=== PATIENT | male | born 1960 ===

== ENCOUNTER 2021-06-16 10:53 | Observation (INO) ==
[2021-06-16] MEDS ORDERED: Famotidine IV 10 MG/ML 2 ml VIAL (20 mg) IV SLOW PU ONE (11:05)
[2021-06-16] MEDS ORDERED: Morphine 4 MG/ML VIAL (1 ml) IV ONE ×2 (11:05→14:27)
[2021-06-16] MEDS ORDERED: Pantoprazole VIAL 40 MG VIAL IV ONE (11:08)
[2021-06-16 14:30] LABS: ABS Lymphocytes 1.2 10^3/ul (1.0-4.8); ABS Monocytes 0.9 10^3/ul (0-0.8); ABS Neutrophils 6.4 10^3/ul (1.5-7.7); Eosinophil % 0.5 %; Hematocrit 46 % (42-52); Hemoglobin 15.3 g/dL (14.0-18.0); Lymphocyte % 14.4 %; Mean Corpuscular HGB Conc 33 g/dL (31-36); Mean Corpuscular Hemoglobin 28 pg (27-31); Mean Corpuscular Volume 84 fL (80-94); Mean Platelet Volume 8.2 fL (7.4-10.4); Platelet Count 209 10^3/uL (150-450); Red Blood Count 5.53 10^6 /uL (4.18-5.48); Red Cell Distribution Width 15 % (10-15); White Blood Count 8.5 10^3/uL (3.5-10.8)
[2021-06-16 14:51] LABS: Albumin 4.7 g/dL (3.2-5.2); Albumin/Globulin Ratio 1.5 (1-3); Calcium 9.4 mg/dL (8.6-10.3); EGFR African American 77.2 (>60); EGFR Non-African American 63.8 (>60); Globulin 3.2 g/dL (2-4); Potassium 3.9 mmol/L (3.5-5.0); Total Bilirubin 0.8 mg/dL (0.2-1.0); Total Protein 7.9 g/dL (6.4-8.9)
[2021-06-16] MEDS ORDERED: PEG 3000 GI LAVAGE 1 GALLON PO ONE (16:16)
[2021-06-16] MEDS ORDERED: Dextrose 50% Syringe 50 ml 25 GM/50 ML SYRINGE IV PUSH PRN (16:33)
[2021-06-16] MEDS ORDERED: Isosorbide Mononit ER 30mg TAB PO ONE (16:34)
[2021-06-16] MEDS: Morphine 2 MG/ML SYRINGE IV SCH ×2 (18:20→22:06)
[2021-06-16] MEDS: Pantoprazole 80 mg in NS BAG 80 MG/250 ML BAG IV SCH (18:21)
[2021-06-17] MEDS: Morphine 2 MG/ML SYRINGE IV SCH ×3 (02:55→13:08)
[2021-06-17 06:03] LABS: ABS Eosinophils 0.1 10^3/ul (0-0.6); ABS Lymphocytes 1.6 10^3/ul (1.0-4.8); ABS Monocytes 1.2 10^3/ul (0-0.8); ABS Neutrophils 4.6 10^3/ul (1.5-7.7); Eosinophil % 0.9 %; Hematocrit 42 % (42-52); Lymphocyte % 20.9 %; Mean Corpuscular HGB Conc 33 g/dL (31-36); Mean Corpuscular Hemoglobin 28 pg (27-31); Mean Corpuscular Volume 84 fL (80-94); Mean Platelet Volume 8.3 fL (7.4-10.4); Platelet Count 191 10^3/uL (150-450); Red Cell Distribution Width 15 % (10-15); White Blood Count 7.5 10^3/uL (3.5-10.8)
[2021-06-17 06:24] LABS: Calcium 8.8 mg/dL (8.6-10.3); EGFR Non-African American 61.9 (>60); Potassium 4.1 mmol/L (3.5-5.0)
[2021-06-17] MEDS: Pantoprazole 80 mg in NS BAG 80 MG/250 ML BAG IV SCH (06:59)
[2021-06-17] MEDS ORDERED: Pneumococcal Vac 23-Polyvalent IM ONE (09:00)
[2021-06-17] MEDS ORDERED: Flu vaccine *QUAD* 2021-22* 0.5 ML SYRINGE IM ONE (09:00)
[2021-06-17] MEDS: Isosorbide Mononit ER 30mg TAB PO SCH (09:22)
[2021-06-17] MEDS ORDERED: Midazolam 2 mg/2 ml VIAL 1 mg/ml 2 ml VIAL (2 mg) ONE ×2 (10:16→11:42)
[2021-06-17] MEDS ORDERED: Lidocaine 2% PF 5 ML VIAL INH ONE (11:01)
[2021-06-17] MEDS ORDERED: Dexmedetomidine 200 mcg/2 ml 2 ml VIAL (200 mcg) ONE (11:19)
[2021-06-17] MEDS ORDERED: Lidocaine 2% PF 5 ML VIAL ONE (11:24)
[2021-06-17] MEDS ORDERED: Acetaminophen IV 1 GM/100ML 100 ML IV ONE (11:30)
[2021-06-17] MEDS ORDERED: Ondansetron 4 mg VIAL 2 MG/ML 2 ml VIAL IV PRN (11:56)
[2021-06-17] MEDS ORDERED: Naloxone 0.4 mg VIAL 0.4 mg/ml 1 ml VIAL IV PRN (11:56)
[2021-06-17] MEDS: Morphine 2 MG/ML SYRINGE IV PRN ×2 (14:11→20:36)
[2021-06-17] MEDS ORDERED: Polyethylene Glycol 3350 17 GM PACKET PO PRN (14:51)
[2021-06-17] MEDS: Sucralfate 1 gm SUSP 1 GM/10 ML UDC PO SCH (23:20)
[2021-06-18] MEDS: Morphine 2 MG/ML SYRINGE IV PRN ×3 (02:29→14:09)
[2021-06-18 06:36] LABS: ABS Eosinophils 0.1 10^3/ul (0-0.6); ABS Lymphocytes 1.6 10^3/ul (1.0-4.8); ABS Monocytes 1.3 10^3/ul (0-0.8); ABS Neutrophils 6.1 10^3/ul (1.5-7.7); Eosinophil % 1.6 %; Hematocrit 43 % (42-52); Hemoglobin 14.1 g/dL (14.0-18.0); Lymphocyte % 17.7 %; Mean Corpuscular HGB Conc 33 g/dL (31-36); Mean Corpuscular Hemoglobin 28 pg (27-31); Mean Corpuscular Volume 85 fL (80-94); Mean Platelet Volume 8.2 fL (7.4-10.4); Platelet Count 209 10^3/uL (150-450); Red Blood Count 5.05 10^6 /uL (4.18-5.48); Red Cell Distribution Width 15 % (10-15); White Blood Count 9.2 10^3/uL (3.5-10.8)
[2021-06-18 07:07] LABS: Calcium 8.8 mg/dL (8.6-10.3); EGFR African American 67.1 (>60); EGFR Non-African American 55.4 (>60); Potassium 3.9 mmol/L (3.5-5.0)
[2021-06-18] MEDS: Sucralfate 1 gm SUSP 1 GM/10 ML UDC PO SCH (07:37)
[2021-06-18] MEDS: Isosorbide Mononit ER 30mg TAB PO SCH (08:51)
[2021-06-18 11:44] VITALS: BP 148/89
== END 2021-06-18 14:17 ==
LOC: ED 10:53 → SSU 10:53
PROVIDERS: ADMIT Internal Medicine; ATTEND Internal Medicine

== ENCOUNTER 2021-06-25 12:56 | Inpatient (IN) ==
[2021-06-25] MEDS ORDERED: Pantoprazole VIAL 40 MG VIAL IV ONE (13:28)
[2021-06-25 17:03] LABS: ABS Basophils 0.1 10^3/ul (0-0.2); ABS Eosinophils 0.1 10^3/ul (0-0.6); ABS Lymphocytes 1.6 10^3/ul (1.0-4.8); ABS Monocytes 0.8 10^3/ul (0-0.8); ABS Neutrophils 4.9 10^3/ul (1.5-7.7); Hematocrit 50 % (42-52); Hemoglobin 16.3 g/dL (14.0-18.0); Lymphocyte % 20.9 %; Mean Corpuscular HGB Conc 33 g/dL (31-36); Mean Corpuscular Hemoglobin 28 pg (27-31); Mean Corpuscular Volume 87 fL (80-94); Mean Platelet Volume 8.6 fL (7.4-10.4); Platelet Count 121 10^3/uL (150-450); Red Blood Count 5.76 10^6 /uL (4.18-5.48); Red Cell Distribution Width 16 % (10-15); White Blood Count 7.5 10^3/uL (3.5-10.8)
[2021-06-25 17:23] LABS: ALT 35 U/L (7-52); AST 18 U/L (13-39); Albumin 4.8 g/dL (3.2-5.2); Albumin/Globulin Ratio 1.5 (1-3); Alkaline Phosphatase 54 U/L (35-149); Anion Gap 10 mmol/L (2-11); Blood Urea Nitrogen 25 mg/dL (6-24); CO2 Carbon Dioxide 23 mmol/L (22-32); Calcium 9.8 mg/dL (8.6-10.3); Chloride 105 mmol/L (101-111); EGFR African American 64.8 (>60); EGFR Non-African American 53.6 (>60); Globulin 3.1 g/dL (2-4); Glucose 128 mg/dL (70-100); Lipase 18 U/L (11.0-82.0); Potassium 4.4 mmol/L (3.5-5.0); Sodium 138 mmol/L (135-145); Total Protein 7.9 g/dL (6.4-8.9)
[2021-06-25] MEDS ORDERED: Al Hydrox/Mg Hydrox/Simet LIQ 30 ML UDC PO ONE (18:46)
[2021-06-25] MEDS ORDERED: Morphine 4 MG/ML VIAL (1 ml) IV ONE ×2 (18:46→21:37)
[2021-06-25] MEDS ORDERED: Iodixanol (CONTRAST) 320 MG/ML 100 ML SDV IV ONE (19:35)
[2021-06-25 20:48] LABS: Troponin I 0.06 ng/mL (<0.03)
[2021-06-25] MEDS ORDERED: Lactated Ringers 1000 ml BAG 1,000 ML IV ONE (20:54)
[2021-06-25 23:45] LABS: Rapid COVID-19 Molecular Undetected (Undetected)
[2021-06-25] MEDS ORDERED: Lactated Ringers 1000 ml BAG 1,000 ML IV SCH (23:45)
[2021-06-26] MEDS ORDERED: Dextrose 50% Syringe 50 ml 25 GM/50 ML SYRINGE IV PUSH PRN (00:33)
[2021-06-26 00:36] LABS: Urine Appearance Clear; Urine Bilirubin Negative (Negative); Urine Blood Negative (Negative); Urine Color Amber; Urine Glucose Negative (Negative); Urine Ketones Negative (Negative); Urine Nitrite Negative (Negative); Urine Protein Negative (Negative); Urine Specific Gravity 1.053 (1.002-1.030); Urine Urobilinogen Negative (Negative)
[2021-06-26 00:53] LABS: Troponin I 0.05 ng/mL (<0.03)
[2021-06-26 01:11] LABS: Cholesterol 132 mg/dL; Triglycerides 88 mg/dL
[2021-06-26 02:25] LABS: HDL Cholesterol 27.5 mg/dL; LDL Cholesterol 87 mg/dL
[2021-06-26] MEDS ORDERED: oxyCODONE/Acetamin 5/325 mg TAB PO ONE (04:28)
[2021-06-26] MEDS ORDERED: Al Hydrox/Mg Hydrox/Simet LIQ 30 ML UDC PO ONE (04:29)
[2021-06-26 05:13] LABS: ABS Basophils 0.1 10^3/ul (0-0.2); ABS Eosinophils 0.2 10^3/ul (0-0.6); ABS Lymphocytes 1.7 10^3/ul (1.0-4.8); ABS Monocytes 1.1 10^3/ul (0-0.8); ABS Neutrophils 5.3 10^3/ul (1.5-7.7); Eosinophil % 2.8 %; Hematocrit 45 % (42-52); Hemoglobin 14.6 g/dL (14.0-18.0); Lymphocyte % 20.6 %; Mean Corpuscular HGB Conc 33 g/dL (31-36); Mean Corpuscular Hemoglobin 28 pg (27-31); Mean Corpuscular Volume 87 fL (80-94); Mean Platelet Volume 8.6 fL (7.4-10.4); Platelet Count 237 10^3/uL (150-450); Red Blood Count 5.17 10^6 /uL (4.18-5.48); Red Cell Distribution Width 16 % (10-15); White Blood Count 8.5 10^3/uL (3.5-10.8)
[2021-06-26 05:39] LABS: Albumin 4.2 g/dL (3.2-5.2); Albumin/Globulin Ratio 1.4 (1-3); Calcium 9.2 mg/dL (8.6-10.3); EGFR African American 57.4 (>60); EGFR Non-African American 47.4 (>60); Potassium 3.5 mmol/L (3.5-5.0); Total Bilirubin 0.5 mg/dL (0.2-1.0); Total Protein 7.2 g/dL (6.4-8.9)
[2021-06-26] MEDS: Isosorbide Mononit ER 30mg TAB PO SCH (09:16)
[2021-06-26] MEDS: Aspirin EC 81 mg TAB.EC (enteric coated) PO SCH (09:16)
[2021-06-26] MEDS: Sucralfate 1 gm SUSP 1 GM/10 ML UDC PO SCH ×3 (11:40→20:47)
[2021-06-26] MEDS ORDERED: Perflutren Lipid Microsphere 3 ML VIAL ONE (14:10)
[2021-06-26] MEDS: Albuterol HFA INHALER 8 gm MDI INH SCH ×2 (15:13→20:46)
[2021-06-26 16:39] LABS: Calcium 8.7 mg/dL (8.6-10.3); EGFR African American 53.3 (>60); Potassium 4.1 mmol/L (3.5-5.0)
[2021-06-26] MEDS ORDERED: Enoxaparin 30 MG/0.3 ML SYR SUBCUT SCH (17:00)
[2021-06-26] MEDS: Pantoprazole VIAL 40 MG VIAL IV SCH (17:28)
[2021-06-26 18:17] LABS: Hematocrit 45 % (42-52); Hemoglobin 14.4 g/dL (14.0-18.0); Mean Corpuscular HGB Conc 32 g/dL (31-36); Mean Corpuscular Hemoglobin 28 pg (27-31); Mean Corpuscular Volume 87 fL (80-94); Red Blood Count 5.14 10^6 /uL (4.18-5.48); Red Cell Distribution Width 16 % (10-15); White Blood Count 7.5 10^3/uL (3.5-10.8)
[2021-06-26 18:30] LABS: EGFR African American 49.3 (>60); EGFR Non-African American 40.8 (>60)
[2021-06-26 18:34] LABS: ABS Basophils 0.1 10^3/ul (0-0.2); ABS Eosinophils 0.3 10^3/ul (0-0.6); ABS Lymphocytes 1.5 10^3/ul (1.0-4.8); ABS Monocytes 0.7 10^3/ul (0-0.8); Eosinophil % 3.6 %; Lymphocyte % 19.5 %; Mean Platelet Volume 8.7 fL (7.4-10.4); Platelet Count 228 10^3/uL (150-450)
[2021-06-26] MEDS: Heparin 5000 UNITS/ML 1 mL VIAL IV SCH (18:44)
[2021-06-26] MEDS: Heparin DRIP 25,000 UNITS BAG 25,000 UNITS/500 ML BAG IV SCH (18:44)
[2021-06-27 01:04] LABS: Hematocrit 40 % (42-52)
[2021-06-27] MEDS: Albuterol HFA INHALER 8 gm MDI INH SCH ×3 (02:28→19:58)
[2021-06-27] MEDS ORDERED: Albuterol HFA INHALER 8 gm MDI INH PRN (07:28)
[2021-06-27] MEDS: Pantoprazole VIAL 40 MG VIAL IV SCH ×2 (08:17→20:30)
[2021-06-27] MEDS: Aspirin EC 81 mg TAB.EC (enteric coated) PO SCH (08:18)
[2021-06-27] MEDS: Isosorbide Mononit ER 30mg TAB PO SCH (08:18)
[2021-06-27] MEDS: Sucralfate 1 gm SUSP 1 GM/10 ML UDC PO SCH ×4 (08:18→22:27)
[2021-06-27 08:46] LABS: ABS Basophils 0.1 10^3/ul (0-0.2); ABS Eosinophils 0.3 10^3/ul (0-0.6); ABS Lymphocytes 2.1 10^3/ul (1.0-4.8); ABS Monocytes 0.8 10^3/ul (0-0.8); ABS Neutrophils 3.9 10^3/ul (1.5-7.7); Eosinophil % 3.9 %; Hematocrit 40 % (42-52); Hemoglobin 13.1 g/dL (14.0-18.0); Mean Corpuscular HGB Conc 33 g/dL (31-36); Mean Corpuscular Hemoglobin 28 pg (27-31); Mean Corpuscular Volume 86 fL (80-94); Mean Platelet Volume 8.8 fL (7.4-10.4); Nucleated Red Blood Cells % 0.1; Platelet Count 224 10^3/uL (150-450); Red Blood Count 4.61 10^6 /uL (4.18-5.48); Red Cell Distribution Width 16 % (10-15); White Blood Count 7.1 10^3/uL (3.5-10.8)
[2021-06-27 09:01] LABS: Calcium 8.7 mg/dL (8.6-10.3); EGFR African American 67.1 (>60); EGFR Non-African American 55.4 (>60); Potassium 3.5 mmol/L (3.5-5.0)
[2021-06-27] MEDS ORDERED: Albuterol/Ipratropium NEB.SOL (2.5/0.5 MG) 3 ML NEB.SOLN INH SCH (13:00)
[2021-06-27] MEDS: Heparin DRIP 25,000 UNITS BAG 25,000 UNITS/500 ML BAG IV SCH (13:38)
[2021-06-27] MEDS ORDERED: Albuterol/Ipratropium NEB.SOL (2.5/0.5 MG) 3 ML NEB.SOLN INH PRN (14:17)
[2021-06-27 14:24] LABS: C Reactive Protein 1.18 mg/L (<8.01)
[2021-06-27] MEDS: Heparin 5000 UNITS/ML 1 mL VIAL IV SCH (19:43)
[2021-06-27] MEDS: Cholestyramine Resin 4 GM POWDER PO SCH (20:30)
[2021-06-28] MEDS: Albuterol HFA INHALER 8 gm MDI INH SCH ×4 (02:06→20:38)
[2021-06-28 09:14] LABS: ABS Basophils 0.1 10^3/ul (0-0.2); ABS Eosinophils 0.2 10^3/ul (0-0.6); ABS Lymphocytes 2.2 10^3/ul (1.0-4.8); ABS Monocytes 0.6 10^3/ul (0-0.8); ABS Neutrophils 3.8 10^3/ul (1.5-7.7); Eosinophil % 3.1 %; Hematocrit 40 % (42-52); Lymphocyte % 31.8 %; Mean Corpuscular HGB Conc 32 g/dL (31-36); Mean Corpuscular Hemoglobin 28 pg (27-31); Mean Corpuscular Volume 86 fL (80-94); Mean Platelet Volume 8.4 fL (7.4-10.4); Platelet Count 236 10^3/uL (150-450); Red Blood Count 4.65 10^6 /uL (4.18-5.48); Red Cell Distribution Width 16 % (10-15); White Blood Count 6.9 10^3/uL (3.5-10.8)
[2021-06-28 09:32] LABS: Albumin 3.8 g/dL (3.2-5.2); Albumin/Globulin Ratio 1.4 (1-3); Calcium 8.3 mg/dL (8.6-10.3); EGFR Non-African American 61.9 (>60); Globulin 2.7 g/dL (2-4); Magnesium 1.8 mg/dL (1.9-2.7); Phosphorus 2.3 mg/dL (2.5-5.0); Potassium 3.5 mmol/L (3.5-5.0); Total Bilirubin 0.2 mg/dL (0.2-1.0); Total Protein 6.5 g/dL (6.4-8.9)
[2021-06-28] MEDS: Cholestyramine Resin 4 GM POWDER PO SCH ×2 (09:41→20:43)
[2021-06-28] MEDS: Pantoprazole VIAL 40 MG VIAL IV SCH ×2 (09:41→20:43)
[2021-06-28] MEDS: Sucralfate 1 gm SUSP 1 GM/10 ML UDC PO SCH ×4 (09:41→20:42)
[2021-06-28] MEDS: Isosorbide Mononit ER 30mg TAB PO SCH (09:42)
[2021-06-28] MEDS: Aspirin EC 81 mg TAB.EC (enteric coated) PO SCH (09:42)
[2021-06-28] MEDS: Heparin DRIP 25,000 UNITS BAG 25,000 UNITS/500 ML BAG IV SCH (10:51)
[2021-06-28] MEDS: Heparin 5000 UNITS/ML 1 mL VIAL IV SCH (10:56)
[2021-06-28 23:22] LABS: Adenovirus F40/41 Negative (Negative); Astrovirus Negative (Negative); Cryptosporidium species Negative (Negative); Cyclospora cayetanensis Negative (Negative); Entamoeba histolytica Negative (Negative); Enteroaggregative E.coli(EAEC) Negative (Negative); Enteropathogenic Ecoli(EPEC) Negative (Negative); Enterotoxigenic Ecoli(ETEC) Negative (Negative); Norovirus GI/GII Negative (Negative); Plesiomonas shigelloides Negative (Negative); Salmonella species Negative (Negative); Sapovirus Negative (Negative); Shiga toxin producing E. coli Negative (Negative); Shigella/Enteroinvasive E.coli Negative (Negative); Specimen Source STOOL; Vibrio cholerae Negative (Negative); Yersinia species Negative (Negative)
[2021-06-29] MEDS: Heparin 5000 UNITS/ML 1 mL VIAL IV SCH (01:19)
[2021-06-29] MEDS: Albuterol HFA INHALER 8 gm MDI INH SCH ×5 (03:28→21:12)
[2021-06-29 07:34] LABS: ABS Basophils 0.1 10^3/ul (0-0.2); ABS Eosinophils 0.2 10^3/ul (0-0.6); ABS Lymphocytes 2.6 10^3/ul (1.0-4.8); ABS Monocytes 0.7 10^3/ul (0-0.8); ABS Neutrophils 3.5 10^3/ul (1.5-7.7); Eosinophil % 3.5 %; Hematocrit 39 % (42-52); Mean Corpuscular HGB Conc 33 g/dL (31-36); Mean Corpuscular Hemoglobin 29 pg (27-31); Mean Corpuscular Volume 86 fL (80-94); Mean Platelet Volume 8.4 fL (7.4-10.4); Platelet Count 231 10^3/uL (150-450); Red Blood Count 4.52 10^6 /uL (4.18-5.48); Red Cell Distribution Width 16 % (10-15); White Blood Count 7.1 10^3/uL (3.5-10.8)
[2021-06-29] MEDS: Heparin DRIP 25,000 UNITS BAG 25,000 UNITS/500 ML BAG IV SCH (07:34)
[2021-06-29 07:41] LABS: Calcium 8.6 mg/dL (8.6-10.3); EGFR African American 72.8 (>60); EGFR Non-African American 60.2 (>60); Magnesium 1.6 mg/dL (1.9-2.7); Potassium 3.5 mmol/L (3.5-5.0)
[2021-06-29] MEDS ORDERED: Warfarin per PHARMACY **NOTE FOLLOW UP SCH (08:00)
[2021-06-29] MEDS: Sucralfate 1 gm SUSP 1 GM/10 ML UDC PO SCH ×4 (08:02→21:36)
[2021-06-29] MEDS: Aspirin EC 81 mg TAB.EC (enteric coated) PO SCH (09:06)
[2021-06-29] MEDS: Isosorbide Mononit ER 30mg TAB PO SCH (09:06)
[2021-06-29] MEDS: Enoxaparin 100 MG/ML SYR SUBCUT SCH ×2 (09:08→21:36)
[2021-06-29] MEDS: Cholestyramine Resin 4 GM POWDER PO SCH ×2 (09:08→21:36)
[2021-06-29] MEDS: Pantoprazole VIAL 40 MG VIAL IV SCH (09:09)
[2021-06-29 13:16] LABS: Hematocrit 39 % (42-52); Hemoglobin 12.8 g/dL (14.0-18.0); Mean Platelet Volume 7.9 fL (7.4-10.4); Platelet Count 247 10^3/uL (150-450)
[2021-06-29 13:23] LABS: INR 1.12 (0.86-1.15)
[2021-06-29] MEDS: Warfarin DAILY REMINDER **NOTE FOLLOW UP SCH (17:24)
[2021-06-30] MEDS ORDERED: Albuterol HFA INHALER 8 gm MDI INH PRN (00:09)
[2021-06-30] MEDS: Sucralfate 1 gm SUSP 1 GM/10 ML UDC PO SCH ×3 (08:36→17:05)
[2021-06-30] MEDS: Enoxaparin 100 MG/ML SYR SUBCUT SCH (08:36)
[2021-06-30] MEDS: Aspirin EC 81 mg TAB.EC (enteric coated) PO SCH (08:41)
[2021-06-30] MEDS: Isosorbide Mononit ER 30mg TAB PO SCH (08:42)
[2021-06-30] MEDS ORDERED: Cholestyramine Resin 4 GM POWDER PO SCH (09:00)
[2021-06-30 10:51] LABS: ABS Basophils 0.1 10^3/ul (0-0.2); ABS Eosinophils 0.2 10^3/ul (0-0.6); ABS Lymphocytes 1.7 10^3/ul (1.0-4.8); ABS Monocytes 0.7 10^3/ul (0-0.8); ABS Neutrophils 3.4 10^3/ul (1.5-7.7); Hematocrit 41 % (42-52); Hemoglobin 13.2 g/dL (14.0-18.0); Lymphocyte % 27.8 %; Mean Corpuscular HGB Conc 32 g/dL (31-36); Mean Corpuscular Hemoglobin 28 pg (27-31); Mean Corpuscular Volume 87 fL (80-94); Mean Platelet Volume 8.4 fL (7.4-10.4); Nucleated Red Blood Cells % 0.1; Platelet Count 255 10^3/uL (150-450); Red Blood Count 4.73 10^6 /uL (4.18-5.48); Red Cell Distribution Width 17 % (10-15); White Blood Count 6.1 10^3/uL (3.5-10.8)
[2021-06-30 10:59] LABS: INR 1.1 (0.86-1.15)
[2021-06-30 11:08] LABS: Anion Gap 7 mmol/L (2-11); Blood Urea Nitrogen 21 mg/dL (6-24); CO2 Carbon Dioxide 26 mmol/L (22-32); Chloride 105 mmol/L (101-111); EGFR African American 82.9 (>60); EGFR Non-African American 68.5 (>60); Glucose 156 mg/dL (70-100); Potassium 3.9 mmol/L (3.5-5.0); Sodium 138 mmol/L (135-145)
[2021-06-30] MEDS ORDERED: SPIRIVA Respimat (tiotropium) 2.5 mcg/inh Inhaler INH SCH (12:00)
[2021-06-30] MEDS ORDERED: Mometasone/Formoter 200/5 MDI INH SCH (12:00)
[2021-06-30 12:13] LABS: Troponin I 0.04 ng/mL (<0.03)
[2021-06-30] MEDS ORDERED: Magnesium Sulfate 2 gm BAG 2 GM/50 ML BAG IVPB ONE (12:32)
[2021-06-30 15:51] VITALS: BP 131/59
[2021-06-30] MEDS: Warfarin DAILY REMINDER **NOTE FOLLOW UP SCH (17:07)
== END 2021-06-30 18:15 | DRG 190 ==
LOC: MEDTELE 12:56 → ED 12:56 → MEDTELE 06-26 03:07 → SUATTDRO 06-26 18:20
PROVIDERS: ADMIT Internal Medicine; ATTEND Hospitalist

== ENCOUNTER 2023-09-26 13:26 | Inpatient (IN) ==
[2023-09-26 14:23] LABS: ABS Lymphocytes 0.7 10^3/uL (1.0-4.8); ABS Monocytes 0.9 10^3/uL (0.0-1.1); ABS Neutrophils 4.2 10^3/uL (1.5-7.6); ABS Nucleated RBC 0.01 10^3/ul; Hematocrit 49.2 % (38-53); Hemoglobin 16.5 g/dL (13.2-16.3); Lymphocyte % 12.5 %; Mean Corpuscular Hemoglobin 29.9 pg (27-33); Mean Corpuscular Hgb Conc 33.4 g/dL (31-36); Mean Corpuscular Volume 89.4 fL (80-97); Mean Platelet Volume 7.9 fL (7.5-11.2); Nucleated Red Blood Cells % 0.2 %/100WBC (0.0-0.8); Platelet Count 181 10^3/uL (150-450); Red Blood Count 5.51 10^6/uL (4.06-5.63); Red Cell Distribution Width 14.2 % (12-17); White Blood Count 5.9 10^3/uL (3.6-10.2)
[2023-09-26 14:33] LABS: INR 1.27 (0.83-1.13)
[2023-09-26 14:42] LABS: Albumin 4.6 g/dL (3.2-5.2); Albumin/Globulin Ratio 1.4 (1-3); C Reactive Protein 32.23 mg/L (<8.01); Calcium 9.3 mg/dL (8.6-10.3); Creatinine, Serum 1.39 mg/dL (0.67-1.17); Globulin 3.3 g/dL (2-4); Potassium 3.9 mmol/L (3.5-5.0); Total Bilirubin 0.6 mg/dL (0.2-1.0); Total Protein 7.9 g/dL (6.4-8.9); eGFR CKD-EPI 56.3 (>60)
[2023-09-26] MEDS ORDERED: Lactated Ringers 1000 ml BAG 1,000 ML IV ONE (15:24)
[2023-09-26 16:24] LABS: High Sensitivity Troponin 1 Hr 18 pg/mL (<20)
[2023-09-26] MEDS ORDERED: Albuterol/Ipratropium NEB.SOL (2.5/0.5 MG) 3 ML NEB.SOLN INH ONE (17:54)
[2023-09-26] MEDS ORDERED: Azithromycin 500 mg/250 ml NS 500 MG/250 ML BAG IVPB ONE (18:13)
[2023-09-26] MEDS ORDERED: cefTRIAXone 2 GM ADDV.VIAL 2 GM in NS 0.9% 100 ml BAG 100 ML IV ONE (18:13)
[2023-09-26] MEDS ORDERED: Enoxaparin 40 MG/0.4 ML SYR SUBCUT SCH (21:00)
[2023-09-26 21:48] LABS: HDL Cholesterol 29.8 mg/dL
[2023-09-26] MEDS ORDERED: Albuterol HFA INHALER 8 gm MDI INH PRN (22:41)
[2023-09-26] MEDS ORDERED: Dextrose 50% Syringe 50 ml 25 GM/50 ML SYRINGE IV PUSH PRN (22:44)
[2023-09-27] MEDS ORDERED: Albuterol/Ipratropium NEB.SOL (2.5/0.5 MG) 3 ML NEB.SOLN INH PRN (01:01)
[2023-09-27 03:23] LABS: Urine Appearance Clear; Urine Bilirubin Negative (Negative); Urine Blood 1+ (Negative); Urine Color Yellow; Urine Glucose Negative (Negative); Urine Ketones Trace (Negative); Urine Nitrite Negative (Negative); Urine Protein 1+(30 mg/dL) (Negative); Urine Specific Gravity 1.026 (1.002-1.030); Urine Urobilinogen Negative (Negative)
[2023-09-27 03:26] LABS: Urine Bacteria Absent (Absent); Urine Red Blood Cell 1+(3-5/hpf) (Absent); Urine White Blood Cell Trace(0-5/hpf) (Absent)
[2023-09-27 03:36] LABS: Urine Benzodiazepine Screen None Detected (None Detect); Urine Cannabinoids Screen None Detected (None Detect); Urine Opiates Screen None Detected (None Detect)
[2023-09-27 04:21] LABS: ABS Lymphocytes 0.9 10^3/uL (1.0-4.8); ABS Neutrophils 4.3 10^3/uL (1.5-7.6); ABS Nucleated RBC 0.01 10^3/ul; Eosinophil % 0.2 %; Hematocrit 46.3 % (38-53); Hemoglobin 15.6 g/dL (13.2-16.3); Mean Corpuscular Hgb Conc 33.8 g/dL (31-36); Mean Corpuscular Volume 88.8 fL (80-97); Mean Platelet Volume 8.3 fL (7.5-11.2); Nucleated Red Blood Cells % 0.1 %/100WBC (0.0-0.8); Platelet Count 153 10^3/uL (150-450); Red Blood Count 5.21 10^6/uL (4.06-5.63); White Blood Count 6.2 10^3/uL (3.6-10.2)
[2023-09-27 04:32] LABS: Calcium 8.5 mg/dL (8.6-10.3); Creatinine, Serum 1.39 mg/dL (0.67-1.17); Potassium 3.9 mmol/L (3.5-5.0); eGFR CKD-EPI 56.3 (>60)
[2023-09-27 04:37] LABS: HIV 4th Generation Nonreactive (Nonreactive)
[2023-09-27 07:49] LABS: Hepatitis C Antibody Reactive (Negative)
[2023-09-27] MEDS: Insulin GLARGINE 100 un/ml 10 ml VIAL SUBCUT SCH (08:31)
[2023-09-27] MEDS: Nicotine PATCH 14 MG/24 HR PATCH TRANSDERM SCH (08:31)
[2023-09-27] MEDS: Isosorbide Mononit ER 30mg TAB PO SCH (08:34)
[2023-09-27] MEDS: Aspirin EC 81 mg TAB.EC (enteric coated) PO SCH (08:34)
[2023-09-27 10:05] LABS: Magnesium 1.8 mg/dL (1.9-2.7)
[2023-09-27] MEDS ORDERED: Sulfur Hexaflouride MICROSPHR 25 MG VIAL ONE (10:29)
[2023-09-27] MEDS ORDERED: Magnesium Sulfate 2 gm BAG 2 GM/50 ML BAG IVPB ONE (11:03)
[2023-09-27] MEDS ORDERED: Levalbuterol 1.25MG/0.5ML NEB.SOL ONE (14:01)
[2023-09-27] MEDS ORDERED: Iodixanol (CONTRAST) 320 MG/ML 100 ML SDV IV ONE (14:03)
[2023-09-27] MEDS: Levalbuterol 1.25MG/0.5ML NEB.SOL INH PRN ×2 (14:05→19:45)
[2023-09-28 07:01] LABS: Hemoglobin 15.5 g/dL (13.2-16.3); Mean Corpuscular Hemoglobin 29.7 pg (27-33); Mean Corpuscular Volume 89.8 fL (80-97); Mean Platelet Volume 8.2 fL (7.5-11.2); Platelet Count 159 10^3/uL (150-450); Red Blood Count 5.23 10^6/uL (4.06-5.63)
[2023-09-28] MEDS: Insulin GLARGINE 100 un/ml 10 ml VIAL SUBCUT SCH (07:44)
[2023-09-28] MEDS: Aspirin EC 81 mg TAB.EC (enteric coated) PO SCH (07:46)
[2023-09-28] MEDS: Nicotine PATCH 14 MG/24 HR PATCH TRANSDERM SCH (07:46)
[2023-09-28] MEDS: Isosorbide Mononit ER 30mg TAB PO SCH (07:48)
[2023-09-28 08:05] LABS: Anion Gap 9 mmol/L (2-16); Blood Urea Nitrogen 25 mg/dL (6-24); CO2 Carbon Dioxide 24 mmol/L (22-32); Chloride 104 mmol/L (101-111); Creatinine, Serum 1.24 mg/dL (0.67-1.17); Glucose 117 mg/dL (70-100); Magnesium 2.2 mg/dL (1.9-2.7); Sodium 137 mmol/L (135-145); eGFR CKD-EPI 64.5 (>60)
[2023-09-28 11:16] LABS: ABS Eosinophils 0.1 10^3/uL (0.0-0.5); ABS Lymphocytes 1.7 10^3/uL (1.0-4.8); ABS Monocytes 1.5 10^3/uL (0.0-1.1); ABS Neutrophils 3.7 10^3/uL (1.5-7.6); ABS Nucleated RBC 0.02 10^3/ul; Eosinophil % 0.9 %; Lymphocyte % 23.8 %; Nucleated Red Blood Cells % 0.3 %/100WBC (0.0-0.8)
[2023-09-28 13:02] LABS: TB1 Ag minus Nil Result 0.03 IU/mL; TB2 Ag minus Nil Result 0.02 IU/mL
[2023-09-28 13:05] LABS: QuantiferonTb Gold Plus Result Negative (Negative)
[2023-09-28 16:14] VITALS: BP 136/73
[2023-09-29 23:05] LABS: Anaplasma phagocytophilum Negative (Negative); B. miyamotoi PCR, B Negative (Negative); Babesia divergens/MO-1 Negative (Negative); Babesia ducani Negative (Negative); Ehrlichia chaffeensis Negative (Negative); Ehrlichia ewingii/canis Negative (Negative); Ehrlichia muris eauclairensis Negative (Negative)
== END 2023-09-28 16:15 | disposition home or self-care (01) | DRG 720 ==
LOC: ED 13:26 → EDHOLD 19:25 → SUATTDRO 19:25 → MEDTELE 09-27
PROVIDERS: ADMIT Internal Medicine; ATTEND Internal Medicine